=== PATIENT | female | born 1965 | race Caucasian/White ===

== ENCOUNTER 2019-02-20 13:57 | Emergency (ER) | payer BC ==
[~2019-02-20] VITALS: Ht 160 cm; Wt 81.6 kg
[2019-02-20 14:00] VITALS: BP 147/71
--- NOTE | 2019-02-20 14:03 | Emergency Room Report ---
History of Present Illness General Chief Complaint: left ankle pain Present Illness HPI Patient 53-year-old female who presented after increased left ankle pain after a fall. Patient reports having stepped into a pothole. She reports having fall the ground. She denies any other locations of pain other than her left ankle. She was having some increased pain with weightbearing. She denies any foot pain. She denies any knee pain. She denies other locations of injury. Patient states that she did prior history of diabetes. She had prior cholecystectomy. She denies any prior history of renal disease or stomach issues. Allergies: Coded Allergies: No Known Allergies (Unverified , 02/20/19) Patient History Past Surgical History: jin Reviewed Nursing Documentation: PMH: Agreed; PSxH: Agreed Review of Systems All Other Systems: negative except mentioned in HPI Physical Exam General Appearance: well appearing, no apparent distress, alert, GCS 15 Head: normocephalic, atraumatic ENT: hearing grossly normal, normal voice Neck: full range of motion, supple Respiratory: chest non-tender, lungs clear, no respiratory distress, speaking full sentences Cardiovascular #1: normal inspection Gastrointestinal: normal inspection, normal bowel sounds, non tender Musculoskeletal: no calf tenderness, decreased range of mation, swelling - left ankle lateral malleolar swelling Neurologic: normal inspection, alert, oriented x3, abnormal gait Psychiatric: mood/affect normal Skin: no rash Medical Decision Making Diagnostic Impression: Primary Impression: Fibula fracture ER Course Patient presented for ankle pain. Differential diagnosis include was not limited to ankle sprain, fracture, dislocation among others. X-ray imaging of the left ankle was ordered due to the patient's significant swelling and discomfort.X-ray imaging of the left ankle 3 views interpreted by me showed nondisplaced fibular fracture. Patient is placed in a stirrup splint. She is given prescription for pain medications. She is advised to follow-up with orthopedics for recheck. She is advised to keep her leg elevated and continue to ice the area. Patient advised to return for any concerns. Status: improved Disposition: HOME, SELF-CARE Condition: Stable Scripts Oxycodone/Acetaminophen 5-325* (PERCOCET 5-325 MG TABLET*) 1 Each Tablet 1 TAB ORAL Q6H PRN for For Pain, #20 TAB Prov: Og Meeks MD 02/20/19 Ibuprofen* (MOTRIN*) 600 Mg Tablet 600 MG ORAL THREE TIMES A DAY, #30 TAB 0 Refills Prov: Og Meeks MD 02/20/19 Og Meeks MD Feb 20, 2019 14:03
--- NOTE | 2019-02-20 14:08 | NUR ---
ED Nurse Note: Pt walked in to ER with assist from home after twisting her Lt ankle 20 minutes prior to arrival. pt aao x4 and was assisted by WC. skin clean and intact. calm and cooperative. reported Lt ankle pain level 10/10. edmatous noted on Lt ankle but no bruise. pt is on monitoring engineer.
--- NOTE | 2019-02-20 14:15 | NUR ---
ED Nurse Note: Called x-ray for reminder.
[2019-02-20] MEDS ORDERED: IBUPROFEN600 MG ORAL (14:34)
--- NOTE | 2019-02-20 14:35 | NUR ---
ED Nurse Note: x-ray at bedside.
[2019-02-20] MEDS ORDERED: PERCOCET 5-3251 EACH ORAL (14:40)
--- NOTE | 2019-02-20 14:42 | NUR ---
ED Nurse Note: ERMD at bedside discussing x-ray result.
--- NOTE | 2019-02-20 14:58 | NUR ---
ED Nurse Note: Splint and crutches were provided.
[2019-02-20 15:01] VITALS: BP 154/76
--- NOTE | 2019-02-20 15:03 | NUR ---
ER DISCHARGE NOTE: Patient is cleared to be discharged per ERMD after splint and crutches provided, pt is aox4, on room air, with stable vital signs. pt was given dc and prescription instructions, pt was able to verbalize understanding, pt id band removed. pt is able to ambulate with steady gait. pt took all belongings.
--- NOTE | 2019-02-21 12:47 | Diagnostic Imaging Report ---
Indication: left ankle pain Comparison: None Findings: 3 views of the left ankle obtained. Lateral soft tissue swelling noted. Acute lateral malleolus fracture demonstrated oriented transversely. There is a irregularity of the lateral part of the calcaneus probably a cortical avulsive type injury. No additional fractures are identified. IMPRESSION: Acute lateral malleolus fracture. Acute suspected superficial cortical injury of the lateral calcaneus
== END 2019-02-20 15:02 | disposition home or self-care (01) ==
LOC: EMR 14:30
DX: S82.62XA Displaced fracture of lateral malleolus of left fibula, initial encounter for closed fracture (principal); W19.XXXA Unspecified fall, initial encounter; Y92.9 Unspecified place or not applicable; Z90.49 Acquired absence of other specified parts of digestive tract
CPT/HCPCS: 29515; 99283